=== PATIENT | male | born 1985 | race Hispanic/Latino ===

== ENCOUNTER 2021-02-09 11:23 | Emergency (ER) | payer OTHER, SELFPAY ==
[2021-02-09 11:26] VITALS: BP 120/69; PULSE 70; RESP 16; TEMP 36.3; O2SAT 98; BMI 25.8
--- NOTE | 2021-02-09 11:48 | ED.VIS.GEN ---
History of Present Illness Chief Complaint: Eye Problem Informant: Patient Narrative: 35-year-old male presents with foreign body sensation in the right eye and eye redness and drainage. He tells me that over the weekend he was working on a car and then he was mowing the lawn and he just kept feeling that something was in his eye. He states now the left eye is becoming red. No contacts or glasses. Past Medical History - Allergies and Home Meds Allergies/Adverse Reactions: Allergies No Known Allergies Allergy (Verified 02/09/21 11:26) Primary Care Physician: Bradford Godinez MD [STAFF PHYSICIAN] - (call office to arrange follow up appointment) Past Medical History: None Surgical History: noncontributory Smoking Status: Never smoker Drugs: None Review of Systems General: Denies: Chills, Fever, Sweats Eyes: Reports: - - Patient notes bilateral eye redness and drainage. Foreign body sensation of the right eye. He notes light sensitivity. Denies: Visual changes - bilaterally, Diplopia ENT: Denies: Rhinorrhea, Sore throat Cardiovascular: Denies: Chest pain, Palpitations Respiratory: Denies: Dyspnea, Cough, Dyspnea on exertion Gastrointestinal: Denies: Abdominal pain, Nausea, Vomiting, Diarrhea, Melena, Hematochezia Genitourinary: Denies: Dysuria, Hematuria, Frequency Musculoskeletal: Denies: Back pain, Extremity Pain Skin: Denies: Rash, Wounds Neurological: Denies: Headache, Weakness, Numbness Physical Exam Vital Signs/Narrative: Vital Signs Temp Pulse Resp BP Pulse Ox 02/09/21 11:26 97.3 F L 70 16 120/69 98 Inital Vital Signs reviewed: Yes General: Well nourished, Well developed, No Acute Distress Head: Normocephalic, Atraumatic Eyes: Perrl, EOMI, - - Bilateral conjunctival injection. No exudates seen. There is a corneal metallic foreign body with rust ring present. ENT: Moist mucous membranes, No rhinorrhea Neck: Supple, Nontender Cardiovascular: Regular rate, Regular rhythm, No murmurs Respiratory: No distress, CTA bilaterally, Chest nontender Abdomen: Soft, Nontender, Nondistended, Normal bowel sounds Back: Nontender, Normal Inspection Extremities: Nontender, No edema Skin: Normal color, No rash Neurological: Alert, Oriented x3, Cranial nerves II-XII grossly intact, Normal Strength, Normal Sensation Psychological: Normal affect, Normal Mood Diagnostic/Tx/Re-eval - Medical Decision Making Using tetracaine and a 22-gauge needle I was able to remove the metallic foreign body. There is a residual rust ring however. Patient was placed on erythromycin ophthalmic ointment and will follow up with ophthalmology. I will touch base with Dr. Dasilva who is on-call for them. ED Disposition - Plan for ED Patient: Disposition: Home or Assisted Living Diagnosis: Corneal foreign body, Corneal rust ring of right eye Instructions: ED Corneal Foreign Body, Removed, ED RUST RING Prescriptions: Erythromycin Ophthalmic 1 applic EACH EYE TID 7 Days #1 opth.tube Prescription Printed Referrals: Bradford Godinez MD [STAFF PHYSICIAN] - (call office to arrange follow up appointment)
[2021-02-09] MEDS: Tetracaine 0.5% Ophthalmic Bottle 1 DRP RIGHT EYE (11:52)
[2021-02-09] MEDS: Fluorescein 1 MG STRIP 1 STRIP RIGHT EYE (11:52)
[2021-02-09] MEDS: Erythromycin Base 1 OPTH.TUBE 1 APPLIC EACH EYE (12:59)
== END 2021-02-09 13:00 | disposition home or self-care (01) ==
LOC: ED 12:26
PROVIDERS: Emergency Provider Emergency Medicine
DX: T15.01XA Foreign body in cornea, right eye, initial encounter (principal); X58.XXXA Exposure to other specified factors, initial encounter; Y93.9 Activity, unspecified; Y92.9 Unspecified place or not applicable; Y99.9 Unspecified external cause status
CPT/HCPCS: 99282

== ENCOUNTER 2021-07-25 12:00 | Emergency (ER) | payer OTHER, SELFPAY ==
[2021-07-25 12:01] VITALS: BP 118/82; PULSE 57; RESP 16; TEMP 36.5; O2SAT 99; BMI 26.6
--- NOTE | 2021-07-25 13:04 | CT_ITS ---
STUDY: CT ABDOMEN AND PELVIS WITHOUT CONTRAST REASON FOR EXAM: Male, 36 years old. Left lower quadrant and left flank pain. RADIATION DOSAGE (If Supplied By Facility): CTDIvol = ( 6.91 ) mGy, DLP = ( 338.48 ) mGycm TECHNIQUE: Transaxial images were obtained from the dome of the diaphragm to the symphysis pubis without oral contrast, and without intravenous contrast. Sagittal and coronal images were reconstructed. Individualized dose optimization techniques were used for this CT. COMPARISON: None. FINDINGS: The visualized lung bases are unremarkable. The visualized portions of the heart are within normal limits. Normal liver. Normal gallbladder and extrahepatic biliary system. Normal spleen. Normal pancreas. Normal bilateral adrenal glands. Normal right kidney. Normal left kidney. Normal visualized stomach. Normal small intestine. Normal colon. The appendix is visualized and appears normal. Normal abdominal aorta. Normal inferior vena cava. Normal retroperitoneum. Normal urinary bladder. Normal abdominal wall. Normal osseous structures. CT/Abdomen/Pelvis without Cont IMPRESSION: Normal unenhanced CT of the abdomen and pelvis. Electronically Signed: Vinayak Winn MD at 14:15 EDT , Service support ,
--- NOTE | 2021-07-25 13:12 | EDS_ITS ---
HPI History of Present Illness Chief Complaint: Abd Pain Informant: patient Narrative Narrative: Patient is a 36-year-old male presenting with left lower quadrant abdominal pain. Patient states he had pain like this before but today when he woke up it was very severe. He states it radiates to his back into his left testicle/groin area. He denies associated nausea, vomiting or change in bowel habits. He denies any fever, cough or chest pain. Did not take anything for pain prior to arrival. Notes that sometimes he does get pain in his abdomen but is never anything like the severity of today. States the pain is constant but waxes and wanes in intensity. Denies any change with urination. Denies any history of any abdominal surgeries. Denies any history of kidney stones. PFSH PFSH Medical History no medical history Allergy/AdvReac Type Severity Reaction Status Date / Time No Known Allergies Allergy Verified 02/09/21 11:26 Family History no significant family his Social History Smoking Status: Never smoker ROS ROS ED Constitutional Constitutional ED: Denies chills, fever(s) or malaise Eyes Eyes: Denies blurry vision or loss of vision ENT ENT ED: Denies rhinorrhea or sore throat Cardiovascular Cardiovascular: Denies chest pain or dizziness Respiratory/Chest Respiratory/Chest: Denies cough or dyspnea Gastrointestinal Gastrointestinal: Reports abdominal pain; Denies constipation, diarrhea, nausea or vomiting Genitourinary Genitourinary ED: Denies dysuria or hematuria Musculoskeletal Musculoskeletal: Denies arthralgias or myalgias Integumentary Denies rash or wounds Neurologic Neurologic: Denies focal weakness, headache(s) or weakness Psychiatric Psychiatric: Denies anxiety or behavioral changes EXAM Physical Exam Const Vital Signs: 07/25/21 12:01 07/25/21 14:17 Temperature 97.7 F L Temperature Source Temporal Pulse Rate 57 L Respiratory Rate 16 Blood Pressure 118/82 H Blood Pressure Mean 94 Pulse Ox 99 Oxygen Delivery Method Room Air Room Air Positive well nourished, well developed and no apparent distress General Appearance ED: well developed HEENT Reports normocephalic atraumatic; Negative for trauma Nose: no nasal discharge External Ear: external ears normal Mouth ED: Yes moist mucous membranes normal Eyes PERRL and EOMs intact bilaterally Neck full ROM, supple, no meningeal signs and no JVD Chest Wall inspection of chest normal Resp normal respiratory effort, normal air movement and clear to auscultation bilaterally Cardio regular rate and regular rhythm GI normal to inspection, nondistended, normoactive bowel sounds and non-distended GI Narrative: Patient has mild pain in the left lower quadrant as well as the left CVA. No palpable hernia appreciated. Palpation: Negative for guarding or rebound tenderness present Back/Spine General Back: CVA tenderness left Extremity normal to inspection and full ROM Neuro oriented x3 and no focal motor deficits Psych mental status grossly normal and thought process normal Skin no rashes or lesions noted and no wounds MDM MDM MDM Narrative Medical decision making narrative: Patient evaluated for worsening pain in his left lower quadrant. Patient points to one discrete area as the pain but states it does sometimes rate down to his testicle and around to his back. He notes he has repetitive job for work. Differential includes hernia as well as kidney stone. He does not have any palpable hernia there is no overlying erythema or finding consistent with incarcerated/strangulated hernia. White count is normal. Lab work is largely unremarkable. Urinalysis is not consistent with infection or kidney stone. CT does not show any acute process. I suspect patient does have a small abdominal wall hernia that is causing his intermittent pain. He is given morphine, Zofran, fluids and Toradol in the ER. He has re solution of his symptoms while in the ER. He is referred to general surgery for further evaluation of suspected abdominal wall hernia. He is counseled to wear abdominal binder/back brace at work to help with his symptoms and avoid straining. Patient is counseled on signs and symptoms requiring return to the emergency room. Patient verbalizes agreement and understand this plan. Patient discharged home in stable and improved condition. Lab Data Attestation: I reviewed the patient's lab results. Labs: Laboratory Results - last 24 hr 07/25/21 07/25/21 07/25/21 13:25 13:30 13:30 WBC 5.6 RBC 5.45 Hgb 16.1 Hct 47.6 MCV 87.3 MCH 29.5 MCHC 33.8 RDW Std Deviation 42.5 RDW Coeff of [place] 13.3 Plt Count 187 MPV 12.1 H Immature Gran % (Auto) 0.400 Neut % (Auto) 58.3 Lymph % (Auto) 32.4 [place] % (Auto) 7.3 Eos % (Auto) 0.9 Baso % (Auto) 0.7 Absolute Neuts (auto) 3.3 Absolute Lymphs (auto) 1.83 Nucleated RBC % 0 Sodium 140 Potassium 3.8 Chloride 103 Carbon Dioxide 31.0 Anion Gap 6 BUN 19 H Creatinine 1.11 Estim Creat Clear Calc 78.49 Est GFR (MDRD) Af Amer 95 Est GFR (MDRD) Non-Af 79 BUN/Creatinine Ratio 17.1 Glucose 99 Calcium 8.6 Urine Color Yellow Urine Clarity Clear Urine pH 7.0 Ur Specific [place] 1.010 U Specif Grav (Refrac) Urine Protein Negative Urine Glucose (UA) Normal Urine Ketones Negative Urine Occult Blood Negative Urine Nitrite Negative Urine Bilirubin Negative Urine Urobilinogen Normal Ur Leukocyte Esterase Negative Urine RBC 0 SEEN Urine WBC 0 SEEN Ur Squamous Epith Cells 0 SEEN Ur Transition Epith Cell Ur Renal Epithelial Cell Calcium Oxalate Crystal Uric Acid Crystals Triple Phos Crystals Other Crystals Amorphous Sediment Urine Bacteria 1+ Hyaline Casts Fine Granular Casts Coarse Granular Casts Waxy Casts RBC Casts WBC Casts Urine Mucus 0 SEEN Urine Trichomonas Urine Yeast 07/25/21 13:30 WBC RBC Hgb Hct MCV MCH MCHC RDW Std Deviation RDW Coeff of [place] Plt Count MPV Immature Gran % (Auto) Neut % (Auto) Lymph % (Auto) [place] % (Auto) Eos % (Auto) Baso % (Auto) Absolute Neuts (auto) Absolute Lymphs (auto) Nucleated RBC % Sodium Potassium Chloride Carbon Dioxide Anion Gap BUN Creatinine Estim Creat Clear Calc Est GFR (MDRD) Af Amer Est GFR (MDRD) Non-Af BUN/Creatinine Ratio Glucose Calcium Urine Color Cancelled Urine Clarity Cancelled Urine pH Cancelled Ur Specific [place] Cancelled U Specif Grav (Refrac) Cancelled Urine Protein Cancelled Urine Glucose (UA) Cancelled Urine Ketones Cancelled Urine Occult Blood Cancelled Urine Nitrite Cancelled Urine Bilirubin Cancelled Urine Urobilinogen Cancelled Ur Leukocyte Esterase Cancelled Urine RBC Cancelled Urine WBC Cancelled Ur Squamous Epith Cells Cancelled Ur Transition Epith Cell Cancelled Ur Renal Epithelial Cell Cancelled Calcium Oxalate Crystal Cancelled Uric Acid Crystals Cancelled Triple Phos Crystals Cancelled Other Crystals Cancelled Amorphous Sediment Cancelled Urine Bacteria Cancelled Hyaline Casts Cancelled Fine Granular Casts Cancelled Coarse Granular Casts Cancelled Waxy Casts Cancelled RBC Casts Cancelled WBC Casts Cancelled Urine Mucus Cancelled Urine Trichomonas Cancelled Urine Yeast Cancelled Radiography Diagnostic Testing: Radiology Impression Abdomen/Pelvis CT 07/25/21 13:04 IMPRESSION: Normal unenhanced CT of the abdomen and pelvis. Electronically Signed: Vinayak Winn MD at 14:15 EDT , Service support , Discharge Plan Triage Chief Complaint: Abd Pain ED Provider: Shanice Taylor Dx/Rx/DC Orders Clinical Impression: Abdominal wall pain, Abdominal wall hernia Instructions: ED Hernia (Adult), ED Abdominal Pain Unkn Cause Male... Primary Care Provider: Care Physician,No Primary Referrals: Dilshad Morales MD [STAFF PHYSICIAN] - Care Physician,No Primary [Primary Care Provider] - Activity Restrictions/Additional Instructions: Alternate Tylenol and ibuprofen as needed for pain. Disposition Disposition: Home, Self Care Discharge Date/Time: 07/25/21 15:30
[2021-07-25] MEDS: Ondansetron 4 MG/2 ML Vial IV (13:41)
[2021-07-25] MEDS: Morphine 4 MG/ML Syringe IV (13:41)
[2021-07-25] MEDS: 0.9% Normal Saline 1,000 ML 999 ML IV (13:41)
[2021-07-25] MEDS: Ketorolac 15 MG/ML Vial IV (13:41)
[2021-07-25 13:43] LABS: Absolute Lymphocyte Count 1.83 X10^3/uL (0.83-4.51); Absolute Neutrophil Count 3.3 X10^3/uL (2.0-7.7); Basophil# 0.04 X10^3/uL; Basophil% 0.7 % (0-1); Eosinophil# 0.05 X10^3/uL; Eosinophils% 0.9 % (0-5); Hematocrit 47.6 % (40-54); Hemoglobin 16.1 g/dL (13.0-16.5); Lymphocyte # 1.83 X10^3/ul (0.83-4.51); Lymphocyte % 32.4 % (19-41); Mean Corp Hgb Conc 33.8 g/dL (32-36); Mean Corpuscular Hgb 29.5 pg (27.0-32.0); Mean Corpuscular Volume 87.3 fL (80-94); Mean Platelet Vol. 12.1 fl (6.2-12.0); Monocyte# 0.41 X10^3/uL; Monocyte% 7.3 % (0-10); NRBC Flagged by Analyzer 0 % (0-5); Neutrophil # 3.29 X10^3/uL (2.7-7.7); Neutrophil % 58.3 % (47-70); Platelet Count 187 K/mm3 (150-450); RBC Distribution Width CV 13.3 % (11.6-14.6); RBC Distribution Width SD 42.5 fl (35.1-43.9); Red Blood Count 5.45 M/mm3 (4.6-6.2); White Blood Count 5.6 K/mm3 (4.4-11.0)
[2021-07-25 13:57] LABS: Anion Gap 6 (5-15); BUN 19 mg/dL (7-18); BUN/Creat Ratio 17.1 RATIO (10-20); Calcium,Total 8.6 mg/dL (8.5-10.1); Chloride 103 mmol/L (98-107); Creatinine, Serum 1.11 mg/dL (0.70-1.30); EST Glomerular Filtration Rate 79 mL/min (>60); Est Glom Filt Rate - Afr Amer 95 mL/min (>60); Estimated Creatinine Clearance 78.49 ml/min; Glucose 99 mg/dL (74-106); Potassium 3.8 mmol/L (3.5-5.1); Sodium Level 140 mmol/L (136-145)
[2021-07-25 14:05] LABS: Mucous, Urine 0 SEEN /hpf (<or=2+); Red Blood Cells-Urine 0 SEEN /hpf (0-5); Squamous Epithelial Cells - UA 0 SEEN /hpf (0-5); White Blood Cells 0 SEEN /hpf (0-5)
[2021-07-25 14:07] LABS: Color, Urine Yellow (Yellow); Glucose, Dipstick Normal (Normal); Ketone-Dipstick Negative (Negative); Leukocyte Esterase-Dipstick Negative /ul (Negative); Nitrite-Dipstick Negative (Negative); Occult Blood-Urine Negative /ul (Negative); Protein-Dipstick Negative (Negative); Urine Bilirubin Dipstick Negative (Negative); Urine Clarity Clear (Clear); Urine Urobilinogen Normal (Normal)
[2021-07-25 14:14] LABS: Bacteria 1+ /hpf (None Seen)
[2021-07-25 15:27] VITALS: BP 114/79; PULSE 86; RESP 18; O2SAT 99
--- NOTE | 2021-07-25 15:27 | ED.RN ---
THIS NURSE REVIEWED D/C INSTRUCTIONS WITH PT. PT VERBALIZED UNDERSTANDING OF INSTRUCTIONS. PT DOES SPEAK SOME [place]. WRITTEN D/C INSTRUCTIONS GIVEN IN [place]. PT READ ALL THE INSTRUCTIONS AND DENIES FURTHER NEEDS OR QUESTIONS AT THIS TIME. IV D/C. IV CATHETER INTACT. PT TOLERATED WELL. PT DENIES FURTHER NEEDS OR QUESTIONS AT [facility]
== END 2021-07-25 15:30 | disposition home or self-care (01) ==
PROVIDERS: Emergency Provider Emergency Medicine
DX: K43.9 Ventral hernia without obstruction or gangrene (principal); R10.32 Left lower quadrant pain
CPT/HCPCS: 74176; 80048; 81001; 85025; 96361; 96374; 96375; 99283; J7030; A4216; J2405

== ENCOUNTER 2023-12-02 19:31 | Emergency (ER) | payer OTHER, SELFPAY ==
[2023-12-02 19:32] VITALS: BP 112/71; PULSE 92; RESP 18; TEMP 37.8; O2SAT 99; BMI 26.5
[2023-12-02 19:45] VITALS: BP 114/67; PULSE 84; TEMP 39.1
--- NOTE | 2023-12-02 19:58 | CT_ITS ---
STUDY: CT ABDOMEN AND PELVIS WITHOUT CONTRAST REASON FOR EXAM: Male, 38 years old. Kidney Stone RADIATION DOSAGE (If Supplied By Facility): CTDIvol = ( 6.31 ) mGy, DLP = ( 345.28 ) mGycm TECHNIQUE: Transaxial images were obtained from the dome of the diaphragm to the symphysis pubis without oral contrast, and without intravenous contrast. Sagittal and coronal images were reconstructed. Individualized dose optimization techniques were used for this CT. COMPARISON: 07/25/2021 FINDINGS: The visualized lung bases are unremarkable. The visualized portions of the heart are within normal limits. Normal liver. Normal gallbladder and extrahepatic biliary system. Normal spleen. Normal pancreas. Normal bilateral adrenal glands. Normal right kidney. Normal left kidney. Normal visualized stomach. Normal small intestine. Normal colon. The appendix is visualized and appears normal. Normal abdominal aorta. Normal inferior vena cava. Normal retroperitoneum. Normal urinary bladder. There is a small umbilical hernia containing fat. Normal osseous structures. CT/Abdomen/Pelvis without Cont IMPRESSION: Normal unenhanced CT of the abdomen and pelvis. Electronically Signed: Benny Woodard MD at 21:45 EST ,
[2023-12-02] MEDS: 0.9% Normal Saline (1000mL) 1,000 ML 999 ML IV (20:08)
[2023-12-02] MEDS: Ondansetron 4 MG/2 ML Vial IV (20:08)
[2023-12-02] MEDS: Ketorolac 30 MG/ML Syringe IV (20:08)
[2023-12-02 20:10] LABS: Absolute Lymphocyte Count 1.04 X10^3/uL (0.83-4.51); Absolute Neutrophil Count 11.6 X10^3/uL (2.0-7.7); Basophil# 0.03 X10^3/uL; Basophil% 0.2 % (0-1); Eosinophil# 0.04 X10^3/uL; Eosinophils% 0.3 % (0-5); Hematocrit 42.2 % (40-54); Hemoglobin 14.6 g/dL (13.0-16.5); Lymphocyte # 1.04 X10^3/ul (0.83-4.51); Lymphocyte % 7.7 % (19-41); Mean Corp Hgb Conc 34.6 g/dL (32-36); Mean Corpuscular Hgb 29.5 pg (27.0-32.0); Mean Corpuscular Volume 85.3 fL (80-94); Mean Platelet Vol. 12.1 fl (6.2-12.0); Monocyte# 0.72 X10^3/uL; Monocyte% 5.3 % (0-10); NRBC Flagged by Analyzer 0 % (0-5); Neutrophil # 11.61 X10^3/uL (2.7-7.7); Neutrophil % 86.3 % (47-70); Platelet Count 140 K/mm3 (150-450); RBC Distribution Width CV 12.9 % (11.6-14.6); RBC Distribution Width SD 39.8 fl (35.1-43.9); Red Blood Count 4.95 M/mm3 (4.6-6.2); White Blood Count 13.5 K/mm3 (4.4-11.0)
--- NOTE | 2023-12-02 20:12 | EX.ED.DYSGE1 ---
HPI History of Present Illness Chief Complaint: General Illness PFSH PFSH Medical History no medical history Allergy/AdvReac Type Severity Reaction Status Date / Time No Known Allergies Allergy Verified 12/02/23 19:34 Family History no significant family his Social History Smoking Status: Never smoker EXAM Physical Exam Const Vital Signs: 12/02/23 19:32 12/02/23 19:43 12/02/23 19:45 Temperature 100.0 F H 102.4 F H Temperature Source Temporal Oral Pulse Rate 92 84 Respiratory Rate 18 Respiratory Pattern Normal Blood Pressure 112/71 114/67 Blood Pressure Mean 84 82 Pulse Ox 99 Oxygen Delivery Method Room Air MDM MDM Lab Data Labs: Laboratory Results - last 24 hr 12/02/23 19:45 WBC 13.5 H RBC 4.95 Hgb 14.6 Hct 42.2 MCV 85.3 MCH 29.5 MCHC 34.6 RDW Std Deviation 39.8 RDW Coeff of [place] 12.9 Plt Count 140 L MPV 12.1 H Immature Gran % (Auto) 0.200 Neut % (Auto) 86.3 H Lymph % (Auto) 7.7 L [place] % (Auto) 5.3 Eos % (Auto) 0.3 Baso % (Auto) 0.2 Absolute Neuts (auto) 11.6 H Absolute Lymphs (auto) 1.04 Nucleated RBC % 0 Discharge Plan Triage Chief Complaint: General Illness ED Midlevel Provider: Cheri Menjivar ED Provider: Rubio Groves Dx/Rx/DC Orders Primary Care Provider: Care Physician,No Primary Referrals: Care Physician,No Primary [Primary Care Provider] -
--- NOTE | 2023-12-02 20:14 | EX.ED.DYSGE1 ---
HPI <HARRY Hernandez - Last Filed: 12/02/23 22:22> History of Present Illness Chief Complaint: General Illness Narrative Narrative: Patient presenting today due low R and L back pain that is worse on his left side that radiates to his left mid abdomen that he has had since this afternoon. He reports that he has also had nausea, 1 episode of vomiting, fever, and chills. He reports that he does have a history of chronic low back pain over the past several years, but this is more painful. He denies any history of IV drug use, bowel/bladder incontinence, and saddle paresthesia. He denies any history of abdominal surgeries. He reports normal bowel movements and denies any urinary symptoms. <Dr. Rubio Groves DO - Last Filed: 12/02/23 23:22> Narrative Narrative: Patient presenting today due low R and L back pain that is worse on his left side that radiates to his left mid abdomen that he has had since this afternoon. He reports that he has also had nausea, 1 episode of vomiting, fever, and chills. He reports that he does have a history of chronic low back pain over the past several years, but this is more painful. Patient denies any saddle anesthesia, urinary retention, bowel or bladder incontinence, lower extremity weakness, fever or IV drug use, no recent spinal manipulation or surgery, no recent urinary catheterization. He denies any history of abdominal surgeries. He reports normal bowel movements and denies any urinary symptoms. PFSH <HARRY Hernandez - Last Filed: 12/02/23 22:22> [facility] Home Medications naproxen 500 mg tablet 500 mg PO BID #14 tabs 12/02/23 [Rx Last Taken Unknown] ondansetron 4 mg disintegrating tablet 4 mg PO Q8H PRN PRN Nausea #10 tabs 12/02/23 [Rx Last Taken Unknown] Allergy/AdvReac Type Severity Reaction Status Date / Time No Known Allergies Allergy Verified 12/02/23 19:34 Social History Smoking Status: Never smoker ROS <HARRY Hernandez - Last Filed: 12/02/23 22:22> ROS ED Constitutional Constitutional ED: Denies chills or fever(s) Cardiovascular Cardiovascular: Denies chest pain Respiratory/Chest Respiratory/Chest: Denies cough or dyspnea Gastrointestinal Gastrointestinal: Denies abdominal pain, nausea or vomiting Genitourinary Genitourinary ED: Denies dysuria, hematuria or urinary urgency Musculoskeletal Musculoskeletal: Reports back pain; Denies arthralgias or myalgias Integumentary Denies rash Neurologic Neurologic: Denies paresthesias or weakness EXAM <HARRY Hernandez - Last Filed: 12/02/23 22:22> Physical Exam Const Vital Signs: 12/02/23 19:32 12/02/23 19:43 12/02/23 19:45 Temperature 100.0 F H 102.4 F H Temperature Source Temporal Oral Pulse Rate 92 84 Respiratory Rate 18 Respiratory Pattern Normal Blood Pressure 112/71 114/67 Blood Pressure Mean 84 82 Pulse Ox 99 Oxygen Delivery Method Room Air 12/02/23 22:24 Temperature Temperature Source Pulse Rate 72 Respiratory Rate 14 Respiratory Pattern Blood Pressure 102/54 L Blood Pressure Mean 70 Pulse Ox 99 Oxygen Delivery Method Room Air Positive well nourished, well developed and no apparent distress General Appearance ED: well developed HEENT Reports normocephalic and head/scalp atraumatic Mouth ED: Yes moist mucous membranes normal Eyes PERRL and EOMs intact bilaterally Neck full ROM and supple Chest Wall inspection of chest normal Resp normal respiratory effort and clear to auscultation bilaterally Cardio regular rate and regular rhythm GI soft to palpation, non-tender, non-distended and no masses Back/Spine normal ROM and normal to inspection Back/Spine Narrative: Left and right lumbar paraspinal tenderness, no midline spinal tenderness to the thoracic or lumbar spine. General Back: Negative for CVA tenderness Thoracic Spine / Upper Back: Negative for thoracic spinal tenderness Lumbar Spine / Lower Back: Negative for lumbar spinal tenderness Extremity normal to inspection and full ROM Neuro oriented x3, CN's II-XII intact bilaterally, moves all extremities, no focal motor deficits and no sensory deficits noted Neuro Narrative: Sensation intact in bilateral lower extremities, intact patellar and ankle reflexes. Sensorium / Orientation: awake and alert Motor Exam: strength 5/5 throughout Psych mental status grossly normal and thought process normal Skin no rashes or lesions noted and no wounds <Dr. Rubio Groves DO - Last Filed: 12/02/23 23:22> Physical Exam Const Vital Signs: 12/02/23 19:32 12/02/23 19:43 12/02/23 19:45 Temperature 100.0 F H 102.4 F H Temperature Source Temporal Oral Pulse Rate 92 84 Respiratory Rate 18 Respiratory Pattern Normal Blood Pressure 112/71 114/67 Blood Pressure Mean 84 82 Pulse Ox 99 Oxygen Delivery Method Room Air 12/02/23 22:24 Temperature Temperature Source Pulse Rate 72 Respiratory Rate 14 Respiratory Pattern Blood Pressure 102/54 L Blood Pressure Mean 70 Pulse Ox 99 Oxygen Delivery Method Room Air [facility] <HARRY Hernandez - Last Filed: 12/02/23 22:22> [facility] Narrative Medical decision making narrative: Patient presenting due to left and R sided low back pain that is worse on the left side and radiates to his left side and left side of his abdomen, nausea, fevers, and chills that started this afternoon. No midline back tenderness. He reports a chronic history of mid back pain. Examination does not seem consistent with cauda equina syndrome or spinal abscess. CT of the abdomen and pelvis will be obtained to rule out kidney stone and other abdominal etiology. UA obtained to rule out UTI and is negative. CBC does show slight leukocytosis, lactic acid is WNL. UA is negative. He was given IV fluids, Toradol, and Zofran. COVID, flu, and influenza swabs will be obtained. CT negative for any acute findings. On reexamination patient reports improvement of his symptoms. The fever and symptoms likely due to a viral illness. Given a prescription for naproxen and Zofran and will be discharged with stable condition. He is comfortable with plan. Lab Data Attestation: I reviewed the patient's lab results. Lab results narrative: WBC 13.5, platelet count 140, potassium 3.4, BUN 19, UA negative for UTI Labs: Laboratory Results - last 24 hr 12/02/23 12/02/23 12/02/23 19:39 19:45 20:25 WBC 13.5 H RBC 4.95 Hgb 14.6 Hct 42.2 MCV 85.3 MCH 29.5 MCHC 34.6 RDW Std Deviation 39.8 RDW Coeff of Hunter 12.9 Plt Count 140 L MPV 12.1 H Immature Gran % (Auto) 0.200 Neut % (Auto) 86.3 H Lymph % (Auto) 7.7 L Towner % (Auto) 5.3 Eos % (Auto) 0.3 Baso % (Auto) 0.2 Absolute Neuts (auto) 11.6 H Absolute Lymphs (auto) 1.04 Nucleated RBC % 0 Sodium 137 Potassium 3.4 L Chloride 107 Carbon Dioxide 24.0 Anion Gap 6 BUN 19 H Creatinine 0.89 Estim Creat Clear Calc 99.56 Est GFR (MDRD) Af Amer 122 Est GFR (MDRD) Non-Af 100 BUN/Creatinine Ratio 21.3 H Glucose 119 H Lactic Acid 1.5 Calcium 8.9 Urine Color Yellow Urine Clarity Clear Urine pH 5.0 Ur Specific Morning Sun 1.020 Urine Protein Negative Urine Glucose (UA) Normal Urine Ketones Negative Urine Occult Blood Negative Urine Nitrite Negative Urine Bilirubin Negative Urine Urobilinogen Normal Ur Leukocyte Esterase Negative Urine RBC 0 SEEN Urine WBC 0 SEEN Ur Squamous Epith Cells 0 SEEN Urine Bacteria 0 SEEN Urine Mucus 0 SEEN Radiography Diagnostic Testing: Clinical Impression(s) from Imaging Studies Abdomen/Pelvis CT 12/02/23 19:58 IMPRESSION: Normal unenhanced CT of the abdomen and pelvis. Electronically Signed: Benny Woodard MD at 21:45 EST , <Dr. Rubio Groves, DO - Last Filed: 12/02/23 23:22> [facility] Narrative Medical decision making narrative: Patient presenting due to left and R sided low back pain that is worse on the left side and radiates to his left side and left side of his abdomen, nausea, fevers, and chills that started this afternoon. No midline back tenderness. He reports a chronic history of mid back pain. Examination does not seem consistent with cauda equina syndrome or spinal abscess. CT of the abdomen and pelvis will be obtained to rule out kidney stone and other abdominal etiology. UA obtained to rule out UTI and is negative. CBC does show slight leukocytosis, lactic acid is WNL. UA is negative. He was given IV fluids, Toradol, and Zofran. COVID, flu, and influenza swabs will be obtained. CT negative for any acute findings. On reexamination patient reports improvement of his symptoms. The fever and symptoms likely due to a viral illness. Given a prescription for naproxen and Zofran and will be discharged with stable condition. He is comfortable with plan. ED attending note: I evaluated the patient in conjunction with the [facility]. I agree with his/her statements and above findings. I have personally performed a face to face assessment of the patient and have reviewed the [facility] Note. I performed a substantive portion of the visit including all aspects of the following. I personally saw the patient performed chart review, physical exam, reviewed labs, imaging (if obtained), and formulated a treatment and management plan. This note was generated with [employer] dictation software. It may contain incorrect words, spelling, and punctuation that were not noted in review of the chart prior to signing. Lab Data Labs: Laboratory Results - last 24 hr 12/02/23 12/02/23 12/02/23 19:39 19:45 20:25 WBC 13.5 H RBC 4.95 Hgb 14.6 Hct 42.2 MCV 85.3 MCH 29.5 MCHC 34.6 RDW Std Deviation 39.8 RDW Coeff of Hunter 12.9 Plt Count 140 L MPV 12.1 H Immature Gran % (Auto) 0.200 Neut % (Auto) 86.3 H Lymph % (Auto) 7.7 L Towner % (Auto) 5.3 Eos % (Auto) 0.3 Baso % (Auto) 0.2 Absolute Neuts (auto) 11.6 H Absolute Lymphs (auto) 1.04 Nucleated RBC % 0 Sodium 137 Potassium 3.4 L Chloride 107 Carbon Dioxide 24.0 Anion Gap 6 BUN 19 H Creatinine 0.89 Estim Creat Clear Calc 99.56 Est GFR (MDRD) Af Amer 122 Est GFR (MDRD) Non-Af 100 BUN/Creatinine Ratio 21.3 H Glucose 119 H Lactic Acid 1.5 Calcium 8.9 Urine Color Yellow Urine Clarity Clear Urine pH 5.0 Ur Specific Morning Sun 1.020 Urine Protein Negative Urine Glucose (UA) Normal Urine Ketones Negative Urine Occult Blood Negative Urine Nitrite Negative Urine Bilirubin Negative Urine Urobilinogen Normal Ur Leukocyte Esterase Negative Urine RBC 0 SEEN Urine WBC 0 SEEN Ur Squamous Epith Cells 0 SEEN Urine Bacteria 0 SEEN Urine Mucus 0 SEEN Radiography Diagnostic Testing: Clinical Impression(s) from Imaging Studies Abdomen/Pelvis CT 12/02/23 19:58 IMPRESSION: Normal unenhanced CT of the abdomen and pelvis. Electronically Signed: Benny Woodard MD at 21:45 EST , Discharge Plan Triage Chief Complaint: General Illness ED Midlevel Provider: Cheri Menjivar ED Provider: Rubio Groves Dx/Rx/DC Orders Clinical Impression: Back pain, Viral illness Instructions: ED Viral Syndrome (Adult) Prescriptions: New naproxen 500 mg tablet 500 mg PO BID Qty: 14 0RF ondansetron 4 mg tablet,disintegrating 4 mg PO Q8H PRN PRN (Reason: Nausea) Qty: 10 0RF Primary Care Provider: Care Physician,No Primary Referrals: Kendrick Méndez MD [Med Staff - Machine Sprayer] - As Needed Care Physician,No Primary [Primary Care Provider] - Activity Restrictions/Additional Instructions: Follow-up with PCP. Return for any worsening of your symptoms. Disposition Disposition: Home, Self Care Discharge Date/Time: 12/02/23 22:25
[2023-12-02 20:22] LABS: Anion Gap 6 (5-15); BUN 19 mg/dL (7-18); BUN/Creat Ratio 21.3 RATIO (10-20); Calcium,Total 8.9 mg/dL (8.5-10.1); Chloride 107 mmol/L (98-107); Creatinine, Serum 0.89 mg/dL (0.70-1.30); EST Glomerular Filtration Rate 100 mL/min (>60); Est Glom Filt Rate - Afr Amer 122 mL/min (>60); Estimated Creatinine Clearance 99.56 ml/min; Glucose 119 mg/dL (74-106); Potassium 3.4 mmol/L (3.5-5.1); Sodium Level 137 mmol/L (136-145)
[2023-12-02 20:22] LABS: Bacteria 0 SEEN /hpf (None Seen); Mucous, Urine 0 SEEN /hpf (<or=2+); Red Blood Cells-Urine 0 SEEN /hpf (0-5); Squamous Epithelial Cells - UA 0 SEEN /hpf (0-5); White Blood Cells 0 SEEN /hpf (0-5)
[2023-12-02 20:25] LABS: Color, Urine Yellow (Yellow); Glucose, Dipstick Normal (Normal); Ketone-Dipstick Negative (Negative); Leukocyte Esterase-Dipstick Negative /ul (Negative); Nitrite-Dipstick Negative (Negative); Occult Blood-Urine Negative /ul (Negative); Protein-Dipstick Negative (Negative); Urine Bilirubin Dipstick Negative (Negative); Urine Clarity Clear (Clear); Urine Urobilinogen Normal (Normal)
--- OUTSIDE RECORDS SUMMARY | 2023-12-02 20:52 | XMS RPT_ITS | CCD ---
Author Name Unknown Address [address] [place] [address] Organization [facility] Care Team Providers Care Chief Engineer [employer]illing And Recovery Name Role Phone Pardo Fareed Eliel Unavailable Unavailable Unavailable Primary Care Provider Unavailabl e Medications Completed/Discontinued Medications Medication Drug Class(es) Dates Sig (Normalized) Sig (Original) acetaminophen 500 mg oral capsule (3 sources) Acetaminophen 50 0 mg cap Take 1,000 mg by mouth as needed. 0 Active Problems Active Problems Problem Classification Problem Date Documented Date Episodic/Chronic Joint disorders and dislocations; trauma-related (3 sources) Chondromalacia of right patella; Translations: [Chondromalacia patellae, right knee] Onset: 08-05-2021 08-05-2021 Chronic Joint disorders and dislocations; trauma-related (1 source) Tear of medial meniscus of knee; Translations: [Other tear of medial meniscus, current injury, left knee, initial encounter] Episodic Other non-traumatic joint disorders (2 sources) Pain in left knee; Translations: [Pain in joint, lower leg] Episodic Unclassified (1 source) Unknown / UNK(Unknown) Onset: 01-21-2018 Past or Other Problems Problem Classification Problem Date Documented Da te Episodic/Chronic Sprains and strains (6 sources) Rupture of anterior cruciate ligament of left knee; Translations: [Sprain of anterior cruciate ligament of left knee, initial encounter] Onset: 10-14-2018 10-23-2018 Episodic Unclassified (1 source) POSS HERNIA Onset: 01-21-2018 Results Test Name Value Interpretation Reference Range Facil ity Encounters Encounter Date Encounter Type Care Provider Facility Start: 05-11-2022 End: 05-11-2022 Subsequent hospital visit by physician Mri [facility] (I-Stat/1.5t) Work Phone: Radiology Procedures Date Procedure Procedure Detail Performing Clinician Start: 05-11-2022 Mri any jt lower ext rem w/o contrast matrl Mayur Ellis MD Work Phone: Start: 04-24-2022 Radiologic examinati on knee 1/2 views Mayur Ellis MD Work Phone: Start: 08-05-2021 History of operative procedure on knee S/P ACL reconstruction [employer] Work Phone: Plan of Treatment Date Care Activity Detail Author Start: 06-29-2022 Influenza vaccination C [facility] Start: 2018 LIPID SCREEN LIPID SCREEN [facility] Start: 2002 Urine microalbumin profile DTAP,TDAP ,TD (1 - Tdap) [facility] Start: 2001 HEPATITIS C SCREENING HEPATITIS C SC REENING [facility] Start: 2001 HIV SCREENING [facility] Start[facility]EN[facility] Start: 1988 COVID-19 VACCINE (#1) COVID-19 VACCI NE (#1) [facility] Start: 1983 COVID-19 VACCINE (#1) COVID-19 VACCI NE (#1) [facility] Payers Date Payer Category Payer Unknown [employer] [place] PRE RON SELF FUNDED [id number] 2021-Present [phone] [address] [place] [address] PPO [id number] Self-pay Social History Date Type Detail Facility Start: 09-16-2018 Tobacco smoking stat us NHIS Never smoked tobacco [facility] Work Phone: Start: 09-16-2018 Tobacco use and exposure Smokeless tobacco non-user [facility] Work Phone: Start: 04-24-2022 End: 05-15-2022 Alcohol intake Current drinker of alcohol (finding) [facility] Start: 09-16-2018 History SDOH Alcohol Comment 1 beer twice per month [facility] Start: 1983 Sex Assigned At Not on file C [facility] Start: 04-14-2022 End: 04-24-2022 Exposure to SARS-CoV-2 (event) Not sure [facility] Work Phone: Medical Equipment Procedure Code Equipment Code Equipment Origin al Text Equipment Identifier Dates Device Tightrope Fixation 2 Load Pass Suture Acl Right - [id number] Start: 10-23-2018 Device Tightrope Fixation 2 Load Pass Suture Acl Right - [id number] Start: 07-09-2019 Clinical Notes 06-17-2021 to 05-11-2022 RT Deisy(R) - 05/11/2022 3:00 PM EDTNORA Dobbins) - 04/24/2022 2:20 PM EDWalt Ellis MD - 04/24/2022 2:00 PM EDT Note Date & Type Note Facility 05-11-2022 Note HNO ID: [id number] Author: RT Deisy(Arielle) Service: ? Author Type: Technologist Type: Progress Notes Filed: 05/11/2022 3:09 PM Note Text: Radiology Service Progress Note PATIENT NAME: Nicola Stovall DATE OF SERVICE: May 11, 2022 TIME: 3:09 PM PATIENT IDENTITY VERIFICATION COMPLETED USING TWO (2) IDENTIFIERS: Name and Date of confirmed by patient verbally. FALL SCREENING: Has the patient had 2 falls in the last year or 1 fall with injury or currently using an Ambulatory Assistive Device (Walker, Cane, Wheelchair, Crutches, etc.)? No PATIENT GENDER DATA: Male PATIENT RELEVANT IMPLANT DATA REVIEWED: Yes RADIOLOGY DEPARTMENT: MR; Exam(s) Completed: Lower MSK: Knee, left PERIPHERAL IV DATA: Not applicable SIGNED BY: RT Deisy(R) May 11, 2022 3:09 PM [facility] 05-11-2022 History of Present illness Narrative Radiology Service Progress Note PATIENT NAME: Nicola Stovall DATE OF SERVICE: May 11, 2022 TIME: 3:09 PM PATIENT IDENTITY VERIFICATION COMPLETED USING TWO (2) IDENTIFIERS: Name and Date of confirmed by patient verbally. FALL SCREENING: Has the patient had 2 falls in the last year or 1 fall with injury or currently using an Ambulatory Assistive Device (Walker, Cane, Wheelchair, Crutches, etc.)? No PATIENT GENDER DATA: Male PATIENT RELEVANT IMPLANT DATA REVIEWED: Yes RADIOLOGY DEPARTMENT: MR; Exam(s) Completed: Lower MSK: Knee, left PERIPHERAL IV DATA: Not applicable SIGNED BY: RT Deisy(Arielle) May 11, 2022 3:09 PM documented in this encounter [facility] 04-24-2022 Note HNO ID: [id number] Author: NORA Dobbins) Service: Radiology Author Type: Technologist Type: Progress Notes Filed: 04/24/2022 2:43 PM Note Text: Radiology Service Progress Note PATIENT NAME: Nicola Stovall DATE OF SERVICE: April 24, 2022 TIME: 2:35 PM PATIENT IDENTITY VERIFICATION COMPLETED USING TWO (2) IDENTIFIERS: Name and Date of confirmed by patient verbally. Patient declined advertising account representative services for his x-ray appointment today. FALL SCREENING: Has the patient had 2 falls in the last year or 1 fall with injury or currently using an Ambulatory Assistive Device (Walker, Cane, Wheelchair, Crutches, etc.)? No PATIENT GENDER DATA: Male PATIENT RELEVANT IMPLANT DATA REVIEWED: Yes RADIOLOGY DEPARTMENT: General X-ray: Exam(s) Completed: Lower Extremity X-Ray(s): Knee, AP / LAT Left and Wt. Bearing PERIPHERAL IV DATA: Not applicable SIGNED BY: RT Mu(R) April 24, 2022 2:35 PM [facility] 04-24-2022 Note HNO ID: [id number] Author: Mayur Ellis MD Service: ? Author Type: Physician Type: Progress Notes Filed: 05/15/2022 7:41 AM Note Text: Mayur Ellis MD Department of Orthopaedics Orthopaedics [address] [facility] [address] Dept: [phone] Dept April 24, 2022 CHIEF COMPLAINT: Established Patient of the Left Knee and 3 weeks post injury left knee 10 months post visit s/p ACL reconstruction right knee, referred to Dr. Muniz for 2nd opinion HPI AMB ROOMING INTAKE FLOWSHEET DATA Risk Screening Do you have concerns about personal safety or safety in the home?: No Pain Pain Level: 5 Pain Location: Knee-Left Description: Sharp Duration Amount of Time: 3 Duration Units: Weeks Frequency: Continuous Intervention/Comfort measure: Medication Comments: tylenol Pt. presents with new injury of left knee which occurred 3 weeks ago when he planted left leg and pivoted and heard pop with sharp pain. he states it feels unstable. He denies ecchymosis at time of injury. He has had past ACL repair of this knee. He has been taking tylenol 100 mg 2-3 times per week when pain is bad with complete relief. ASSESSMENT: M25.562 Acute pain of left knee (primary encounter diagnosis) S83.242A Tear of medial meniscus of left knee, current, unspecified tear type, initial encounter PLAN: He is slightly lax but symmetrical to the contralateral side and still with a solid endpoint. I like to get an MRI based on his feelings of instability and a pop that he felt. Mr. Nicola Stovall was advised as to contrast therapies and/or to take analgesics/anti-inflammatories as needed and all contraindications were reviewed. OBJECTIVE: Mr. Nicola Stovall is a pleasant 36 year old in no apparent distress. Gen:There were no vitals taken for this visit. nl development, non obese, no deformities ENT: Normocephalic, normal hearing, moist mucosa CV: Pulses:DP/PT= 2+ and symmetric, capillary refill < 2 secs, no peripheral edema/varicosities Skin: no rash, bruising or lesions. Good turgor. Psych: cooperative and appropriate, alert and oriented x 3, good mood and affect. Musculoskeletal: 2+ Santiago, symmetrical to the contralateral side with a stable endpoint. Mild pain but no mechanical symptoms with Melo. Imaging: IMPRESSION: No radiographic evidence of acute osseous abnormality. Status post anterior cruciate ligament repair with stable mild medial compartmental joint space narrowing. Floorwalker: LISA ? Transcribe Date/Time: Apr 24 2022 ?3:26P Dictated by : MEHDI FERGUSON MD This examination was interpreted and the report reviewed and electronically signed by: MEHDI FERGUSON MD on Apr 24 2022 ?3:27PM ?EST Results-Findings * * *Final Report* * * DATE OF EXAM: Apr 24 2022 ?2:42PM ? WRX ? 5206 ?- ?XR KNEE 2V AP/LAT LT ?/ PROCEDURE REASON: Acute pain of left knee ?? ? * * * * Physician Interpretation * * * * ?CLINICAL INDICATION: Pain TECHNIQUE: AP and lateral radiographs of the left knee COMPARISON: Radiograph dated April 28, 2021 FINDINGS: Left knee: Trace fluid in the left suprapatellar joint space. Stable postsurgical changes from anterior cruciate ligament repair. No acute fracture or dislocation. Stable mild medial compartmental joint space narrowing. Comparison radiograph of the right knee demonstrates stable postsurgical changes from anterior cruciate ligament repair and stable mild medial compartmental joint space narrowing. Supporting Subjective Information Below: Past Surgical History: PAST SURGICAL HISTORY Procedure Laterality Date - KNEE SCOPE,AID ANT CRUCIATE REPAIR Left 10/23/2018 Left knee arthroscopic ACL reconstruction with auto hamstring graft and left knee medial menisectomy - KNEE SCOPE,AID ANT CRUCIATE REPAIR Right 07/09/2019 Righ knee arthroscopic ACL reconstruction with auto hamstring graft and right knee medial menisectomy, AND medial distal femoral condyle microfracture - NONE Medications: Current Outpatient Medications Medication Sig - meloxicam (MOBIC) 15 mg tablet Take 1 tablet by mouth once daily. (Patient not taking: Reported on 07/28/2021 ) - Acetaminophen 500 mg cap Take 1,000 mg by mouth as needed. (Patient not taking: Reported on 08/23/2021 ) No current facility-administered medications for this visit. Allergies: Patient has no known allergies. ROS: General (negative for fatigue, malaise, weight loss/gain) HEENT (negative for headache, earache, recent vision changes, sinus pain, sore throat) Respiratory (no recent shortness of breath, hemoptysis) CV (negative for chest tightness, palpitations) Musculoskeletal (see HPI) Psych (no depression, anxiety) Mayur Ellis MD [facility] 04-24-2022 History of Present illness Narrative Radiology Service Progress Note PATIENT NAME: Nicola Stovall DATE OF SERVICE: April 24, 2022 TIME: 2:35 PM PATIENT IDENTITY VERIFICATION COMPLETED USING TWO (2) IDENTIFIERS: Name and Date of confirmed by patient verbally. Patient declined advertising account representative services for his x-ray appointment today. FALL SCREENING: Has the patient had 2 falls in the last year or 1 fall with injury or currently using an Ambulatory Assistive Device (Walker, Cane, Wheelchair, Crutches, etc.)? No PATIENT GENDER DATA: Male PATIENT RELEVANT IMPLANT DATA REVIEWED: Yes RADIOLOGY DEPARTMENT: General X-ray: Exam(s) Completed: Lower Extremity X-Ray(s): Knee, AP / LAT Left and Wt. Bearing PERIPHERAL IV DATA: Not applicable SIGNED BY: RT Mu(R) April 24, 2022 2:35 PM documented in this encounter [facility] 04-24-2022 History of Present illness Narrative Mayur Ellis MD Department of Orthopaedics Orthopaedics [address] [place] [address] Dept: [phone] Dept April 24, 2022 CHIEF COMPLAINT: Established Patient of the Left Knee and 3 weeks post injury left knee 10 months post visit s/p ACL reconstruction right knee, referred to Dr. Muniz for 2nd opinion HPI AMB ROOMING INTAKE FLOWSHEET DATA Risk Screening Do you have concerns about personal safety or safety in the home?: No Pain Pain Level: 5 Pain Location: Knee-Left Description: Sharp Duration Amount of Time: 3 Duration Units: Weeks Frequency: Continuous Intervention/Comfort measure: Medication Comments: tylenol Pt. presents with new injury of left knee which occurred 3 weeks ago when he planted left leg and pivoted and heard pop with sharp pain. he states it feels unstable. He denies ecchymosis at time of injury. He has had past ACL repair of this knee. He has been taking tylenol 100 mg 2-3 times per week when pain is bad with complete relief. ASSESSMENT: M25.562 Acute pain of left knee (primary encounter diagnosis) S83.242A Tear of medial meniscus of left knee, current, unspecified tear type, initial encounter PLAN: He is slightly lax but symmetrical to the contralateral side and still with a solid endpoint. I like to get an MRI based on his feelings of instability and a pop that he felt. Mr. Nicola Stovall was advised as to contrast therapies and/or to take analgesics/anti-inflammatories as needed and all contraindications were reviewed. OBJECTIVE: Mr. Nicola Stovall is a pleasant 36 year old in no apparent distress. Gen:There were no vitals taken for this visit. nl development, non obese, no deformities ENT: Normocephalic, normal hearing, moist mucosa CV: Pulses:DP/PT= 2+ and symmetric, capillary refill < 2 secs, no peripheral edema/varicosities Skin: no rash, bruising or lesions. Good turgor. Psych: cooperative and appropriate, alert and oriented x 3, good mood and affect. Musculoskeletal: 2+ Santiago, symmetrical to the contralateral side with a stable endpoint. Mild pain but no mechanical symptoms with Melo. Imaging: IMPRESSION: No radiographic evidence of acute osseous abnormality. Status post anterior cruciate ligament repair with stable mild medial compartmental joint space narrowing. Floorwalker: [facility] Transcribe Date/Time: Apr 24 2022 3:26P Dictated by : MEHDI FERGUSON MD This examination was interpreted and the report reviewed and electronically signed by: MEHDI FERGUSON MD on Apr 24 2022 3:27PM EST Results-Findings * * *Final Report* * * DATE OF EXAM: Apr 24 2022 2:42PM WRX 5206 - XR KNEE 2V AP/LAT LT / PROCEDURE REASON: Acute pain of left knee * * * * Physician Interpretation * * * * CLINICAL INDICATION: Pain TECHNIQUE: AP and lateral radiographs of the left knee COMPARISON: Radiograph dated April 28, 2021 FINDINGS: Left knee: Trace fluid in the left suprapatellar joint space. Stable postsurgical changes from anterior cruciate ligament repair. No acute fracture or dislocation. Stable mild medial compartmental joint space narrowing. Comparison radiograph of the right knee demonstrates stable postsurgical changes from anterior cruciate ligament repair and stable mild medial compartmental joint space narrowing. Supporting Subjective Information Below: Past Surgical History: PAST SURGICAL HISTORY Procedure Laterality Date KNEE SCOPE,AID ANT CRUCIATE REPAIR Left 10/23/2018 Left knee arthroscopic ACL reconstruction with auto hamstring graft and left knee medial menisectomy KNEE SCOPE,AID ANT CRUCIATE REPAIR Right 07/09/2019 Righ knee arthroscopic ACL reconstruction with auto hamstring graft and right knee medial menisectomy, & medial distal femoral condyle microfracture NONE Medications: Current Outpatient Medications Medication Sig meloxicam (MOBIC) 15 mg tablet Take 1 tablet by mouth once daily. (Patient not taking: Reported on 07/28/2021 ) Acetaminophen 500 mg cap Take 1,000 mg by mouth as needed. (Patient not taking: Reported on 08/23/2021 ) No current facility-administered medications for this visit. Allergies: Patient has no known allergies. ROS: General (negative for fatigue, malaise, weight loss/gain) HEENT (negative for headache, earache, recent vision changes, sinus pain, sore throat) Respiratory (no recent shortness of breath, hemoptysis) CV (negative for chest tightness, palpitations) Musculoskeletal (see HPI) Psych (no depression, anxiety) Mayur Ellis MD documented in this encounter [facility] 11-22-2021 Note HNO ID: [id number] Author: Cliff Elizalde PT Service: ? Author Type: Physical Therapist Type: Progress Notes Filed: 11/22/2021 3:32 PM Note Text: 11/22/2021 [facility]IL[facility] SPORTS THER[facility] PHYSICAL THERAPY DISCONTINUANCE OF CARE Plan of Care Period: Start of Care Date: 08/04/21 Last Visit Date: 08/04/2021 Therapy Program: Patient did not return for follow up care as planned. Please refer to last visit note for interventions provided for this episode of care. Assessment: Unable to formally assess goal achievement. Reason for Discontinuation of Care: Patient has not returned to therapy or scheduled additional follow-up appointments. Cliff Elizalde PT [facility] 08-24-2021 Note HNO ID: [id number] Author: RT Santiago(R) Service: ? Author Type: Supervisor Mails Type: Progress Notes Filed: 08/24/2021 1:02 PM Note Text: Radiology Service Progress Note DATE OF SERVICE: August 24, 2021 TIME: 1:02 PM PATIENT IDENTITY VERIFICATION COMPLETED USING TWO (2) STANDARD IDENTIFIERS: Name and Date of confirmed by patient verbally. FALL SCREENING: Has the patient had 2 falls in the last year or 1 fall with injury or currently using an Ambulatory Assistive Device (Walker, Cane, Wheelchair, Crutches, etc.)? No PATIENT GENDER DATA: Male PATIENT RELEVANT IMPLANT DATA REVIEWED: Yes ALLERGIES: Reviewed and unchanged CONTRAST ALLERGY: NO. EXAM: CT -CONTRAST INDUCED NEPHROPATHY RISK FACTORS: Not applicable CREATININE: Creatinine Date Value Ref Range Status 07/07/2019 0.92 0.73 - 1.22 mg/dL Final eGFR-All Other Races Date Value Ref Range Status 07/07/2019 >60 . Final Comment: eGFR (Estimated GFR) Units of measure: mL/min/1.73 meters squared eGFR is derived from the reexpressed MDRD Study equation using the following parameters: serum creatinine, age, gender and race. The creatinine assay has been calibrated to be traceable to IDMS. An eGFR <60 mL/min/1.73m2 for >3 months is consistent with chronic kidney disease. Refer to KDOQI guidelines for clinical interpretation. In patients with unstable renal function, e.g. those with acute kidney injury, the eGFR may not accurately reflect actual GFR. eGFR- Date Value Ref Range Status 07/07/2019 >60 Final P.O.C.T. RESULTS: N/A August 24, 2021 TREATMENT: N/A PERIPHERAL IV DATA: Ambulatory: A peripheral IV was started in the Right antecubital site with a Angio cath: 18 gauge. RADIOLOGY DEPARTMENT: CT; Exam(s) Completed: Abdomen/Pelvis SIGNATURE: RT Columba(R) PATIENT NAME: Nicola Stovall DATE: August 24, 2021 TIME: 1:02 PM [facility] 08-23-2021 Note HNO ID: [id number] Author: Dilshad Morales MD Service: ? Author Type: Physician Type: Progress Notes Filed: 08/23/2021 2:47 PM Note Text: Patient status post a CT scan of the abdomen and pelvis with IV and p.o. contrast. This revealed a jejunal intussusception. His pain really is unchanged on the left side of the umbilical area it does not appear to be related to his stomach or his colon. He is not complaining of any nausea or vomiting. Objective:Blood pressure 108/60, pulse 72, temperature 36.4 ?C (97.6 ?F), SpO2 99 %. Abdomen is soft tenderness in the left periumbilical area and left side of the abdomen. No abdominal wall hernias are seen. No signs of any rashes are seen. Assessment:Intussusception of jejunum (hcc) (primary encounter diagnosis) Plan: I am getting a CT enteroclysis study on him to make sure that we do not have anything that looks like a lead point in the small intestine. If this is negative I probably send him to gastroenterology for possible scopes. Otherwise his pain is more likely to be musculoskeletal in nature. [facility] 08-10-2021 Note HNO ID: [id number] Author: Kortney Murphy, [place] Service: ? Author Type: Clinical Supervisor Mails Type: Progress Notes Filed: 08/10/2021 2:51 PM Note Text: Radiology Service Progress Note DATE OF SERVICE: August 10, 2021 TIME: 2:51 PM PATIENT IDENTITY VERIFICATION COMPLETED USING TWO (2) STANDARD IDENTIFIERS: Name and Date of confirmed by patient verbally. FALL SCREENING: Has the patient had 2 falls in the last year or 1 fall with injury or currently using an Ambulatory Assistive Device (Walker, Cane, Wheelchair, Crutches, etc.)? No PATIENT GENDER DATA: Male PATIENT RELEVANT IMPLANT DATA REVIEWED: Yes ALLERGIES: Reviewed and unchanged CONTRAST ALLERGY: NO. EXAM: CT -CONTRAST INDUCED NEPHROPATHY RISK FACTORS: Not applicable CREATININE: Creatinine Date Value Ref Range Status 07/07/2019 0.92 0.73 - 1.22 mg/dL Final eGFR-All Other Races Date Value Ref Range Status 07/07/2019 >60 . Final Comment: eGFR (Estimated GFR) Units of measure: mL/min/1.73 meters squared eGFR is derived from the reexpressed MDRD Study equation using the following parameters: serum creatinine, age, gender and race. The creatinine assay has been calibrated to be traceable to IDMS. An eGFR <60 mL/min/1.73m2 for >3 months is consistent with chronic kidney disease. Refer to KDOQI guidelines for clinical interpretation. In patients with unstable renal function, e.g. those with acute kidney injury, the eGFR may not accurately reflect actual GFR. eGFR- Date Value Ref Range Status 07/07/2019 >60 Final P.O.C.T. RESULTS: N/A August 10, 2021 TREATMENT: N/A PERIPHERAL IV DATA: Ambulatory: A peripheral IV was started in the Right antecubital site with a Angio cath: 22 gauge. RADIOLOGY DEPARTMENT: CT; Exam(s) Completed: Abdomen/Pelvis SIGNATURE: Kortney Murphy, DARSHAN PATIENT NAME: Nicola Stovall DATE: August 10, 2021 TIME: 2:51 PM [facility] 08-05-2021 Note HNO ID: [id number] Author: Cliff Elizalde PT Service: ? Author Type: Physical Therapist Type: Progress Notes Filed: 08/05/2021 12:35 PM Note Text: Episode Visit Count: 1 Therapist That Will Oversee The Plan Of Care: Cliff Elizalde Start of Care Date: 08/04/21 Onset Date: 08/05/19 Patient Identified by Name and Date of : Yes REHABILITATION AND SPORTS THERAPY PHYSICAL THERAPY EVALUATION PLAN OF CARE: Assessment: Nicola Stovall presents with the chief complaint of right knee pain. He presents with impairments of limited knee and hip strength of the RLE, poor tolerance for standing, walking, squatting, and work tasks. He may benefit from skilled therapy services to improve the above noted deficits to decrease pain and improve activity tolerance. Prognosis: Good Good due to: current objective clinical presentation;good overall health status;positive past response to therapy;good support system/ coping skills Goals for Episode of Care: created on 08/04/21 through 10/05/21 Phase 5 to Return to Sport Criteria: Criterion for Progression: Strength: Greater than or equal to 90% symmetry., Pain free transition to activities and no functional complaints. and Confidence when running, cutting, jumping at full speed. Planned Interventions, Frequency, and Duration: Current Frequency: 1x/month Duration: 8 weeks Total Number of Visits Planned: 2 Planned Treatment Interventions: Therapeutic exercise (63293);Neuromuscular re-education (27717);Manual therapy (00102);Therapeutic activities (14171);Self-correction management (35576);Patient/Family/Caregiver Education;Body Mechanics Training PLAN FOR NEXT VISIT: Continue strengthening, May try leg press and HS curl machine Patient demonstrates good understanding of plan of care and treatment. The above goals and plan of care were discussed and agreed upon by patient/family. SUBJECTIVE: Nicola Stovall is a 36 year old male seen today for R knee pain that has gotten worse since his ACL repair when returning to work. Notes pain around the bottom of the knee cap and can be sharp to achy. Pt would like exercises to perform at home as his schedule makes it tough to come into therapy regularly Pain: Pain Pain Level: 6 Pain Location: Knee - Right Description: Aching;Sharp Frequency: Intermittent;With movement Post Treatment Pain Post Treatment Pain Level: 0 PROMIS Scales T-scores: mean of general population = 50. 5 points is clinically meaningfully difference Percentiles provide an indication of how the patient's score ranks in relation to the general population. Higher percentile rankings indicate better function/quality of life. 50th percentile is the average of the general population and indicates half of respondents had a worse score. T-scores: mean of general population = 50. 5 points is clinically meaningfully difference Percentiles provide an indication of how the patient's score ranks in relation to the general population. Higher percentile rankings indicate better function/quality of life. 50th percentile is the average of the general population and indicates half of respondents had a worse score. OBJECTIVE MEASURES WITH LEVEL OF FUNCTION: LE AROM R Knee Extension: 5 Degrees R Knee Flexion: 140 Degrees Dynamometer Strength Right Quadriceps Strength (lbs): 50.1 Left Quadriceps Strength (lbs): 66.7 Quad Strength Limb Symmetry Index (%): 75.11 Right Hamstring Strength (lbs): 37.7 Left Hamstring Strength (lbs): 47.7 Hamstring Strength Limb Symmetry Index(%): 79.04 Education: TREATMENT: PT Treatment Interventions: Therapeutic Exercise Evaluation Therapeutic Exercise: 1: *SL glute bridging 3x10 2: *Squats 3x10 3: *Step back lunges 3x10 4: *Step ups onto 12 step 3x10 5: *SL hip abduction 3x10 6: *SLR 3x20 7: Discussed rationale for exercises and contacting me for progressions as needed since he will be working on his own with these exercises. Skilled Intervention: Patient was educated in proper exercise technique and purpose for exercises. Skilled judgment was provided in selection of appropriate interventions. Provided written instruction for home exercise program to facilitate proper performance and compliance. Correct performance of therapeutic exercises was facilitated with verbal, visual and tactile cuing. Patient education as noted. Billing * Evaluation Low Complexity: 1 Unit Therapeutic Exercise Treatment Minutes: 24 Total Treatment Time Minutes (timed and untimed codes) : 40 Cliff Elizalde, PT [facility] 08-04-2021 Note HNO ID: [id number] Author: Dilshad Morales MD Service: ? Author Type: Physician Type: Progress Notes Filed: 08/04/2021 7:56 AM Note Text: HISTORY AND PHYSICAL Nicola Stovall 1985 REFERRING PHYSICIAN: Self CHIEF COMPLAINT: Consult ([facility] ER follow up, hernia) HPI: The patient is a 36 year old male with a complaint of nausea as well as pain on the left lower extremity side of his periumbilical region. He cannot recall having any bulges come out here. Was seen in the emergency department on 927 where they obtained a CAT scan of his abdomen and pelvis without contrast. This did not reveal anything that was suspicious. . PAST MEDICAL HISTORY Diagnosis Date - Low back pain PAST SURGICAL HISTORY Procedure Laterality Date - KNEE SCOPE,AID ANT CRUCIATE REPAIR Left 10/23/2018 Left knee arthroscopic ACL reconstruction with auto hamstring graft and left knee medial menisectomy - KNEE SCOPE,AID ANT CRUCIATE REPAIR Right 07/09/2019 [facility] knee arthroscopic ACL reconstruction with auto hamstring graft and right knee medial menisectomy, AND medial distal femoral condyle microfracture - NONE Current Outpatient Medications Medication Sig - Acetaminophen 500 mg cap Take 1,000 mg by mouth as needed. - meloxicam (MOBIC) 15 mg tablet Take 1 tablet by mouth once daily. (Patient not taking: Reported on 07/28/2021 ) No current facility-administered medications for this visit. ALLERGIES: Patient has no known allergies. PERSONAL HISTORY: Social History Tobacco Use - Smoking status: Never Smoker - Smokeless tobacco: Never Used Vaping Use - Vaping Use: Never used Substance Use Topics - Alcohol use: Yes Comment: 1 beer twice per month - Drug use: No FAMILY HISTORY: FAMILY HISTORY Problem Relation Age of Onset - No Known Problems Mother - No Known Problems Father REVIEW OF SYMPTOMS: The review of systems data was entered by the nurse and reviewed by wa Nursing Notes: Sasha Gandhi RN 07/28/2021 3:55 PM Signed Portuguese interpretor Shwetha #[id number]. REVIEW OF SYSTEMS: General: The patient denies fatigue, denies weight loss, denies weight gain, denies feeling hot, and denies feelings of cold. Eyes: The patient denies glaucoma, denies eye injury/surgery, does not wear glasses or contacts. Ear/Nose/Throat: The patient denies allergies, denies hayfever, denies ear infections, and denies bloody noses. Cardiovascular: The patient denies chest pain, denies heart disease, denies high blood pressure,denies cardiac stent, denies prior heart attack, denies irregular heart beat, denies high cholesterol, denies poor circulation, denies heart failure, other cardiac issues, denies claudication, denies cold feet, denies peripheral arterial stent. Respiratory: The patient denies tuberculosis, denies pneumonia, denies frequent cough, denies pulmonary embolism, denies shortness of breath, and denies coughing up blood. Gastrointestinal: The patient denies difficulty swallowing, NOTES acid reflux, denies ulcers, NOTES vomiting, denies jaundice/hepatitis, denies gallbladder problems, denies black or tarry stools, denies hemorrhoids, denies bleeding from rectum, denies diverticulitis, denies constipation, denies diarrhea, denies loss of stool control, and NOTES hernias. Kidney/Bladder: The patient denies kidney stones, denies urine infections, and denies bloody urine. Skin: The patient denies a history of skin cancer, denies bleeding/changing moles, and denies a history of skin rash. Neurologic: The patient denies a history of epilepsy/convulsions, denies headaches, denies head/spinal injuries, and denies stroke/TIA. Psychiatric: The patient denies psychiatric medications, denies depression, and denies voices, denies substance abuse. Endocrine: The patient denies thyroid disorders, denies diabetes, and denies hormonal problems. Hematologic: The patient denies a history of bruising, denies bleeding, and denies anemia, denies blood clots. Infections: The patient denies a history of measles and mumps, denies rheumatic fever, and denies sexually transmitted diseases. Musculoskeletal: The patient denies back pain/injury, denies back problems, denies sciatica, denies knee/foot trouble, denies arthritis, or denies gout. When was patient's last Mammogram screening? N/A Last Colonoscopy: None Sasha Gandhi RN PHYSICAL EXAMINATION: General: The patient is 36 year old male, well nourished, well hydrated in no acute distress. The patient is oriented to time, place, and person. VITALS: Blood pressure 104/60, pulse 84, temperature 36.7 ?C (98 ?F), height 162.6 cm (5' 4 ), weight 74.1 kg (163 lb 6.4 oz), SpO2 99 %. HEENT: Normal cephalic, ataumatic, pupils are equally round, sclera are anicteric, mucous membranes are moist, oropharynx is clear. Neck has no masses, asymmetry or lymphadenopathy. Thyroid is unremarkable. Respiratory: Clear to auscultation and percu (more content not included)... [facility] 07-27-2021 Note HNO ID: [id number] Author: Dora Muniz, DO Service: ? Author Type: Physician Type: Progress Notes Filed: 07/27/2021 2:40 PM Note Text: Follow Up Visit Chief Complaint Nicola Stovall is a 36 year old male who presents today for follow up office visit. Patient presents with: Right Knee - New, Knee Pain History of Present Illness PAIN EVALUATION 07/27/2021 1357 Pain Level: 3 Pain Location: Knee-Right Description: Aching;Dull Duration Amount of Time: 2 Duration Units: Years Frequency: Intermittent Intervention/Comfort measure: Medication;Reposition;Relaxation;O ther: See comment;Cold meloxicam, PT HPI: Nicola Stovall is a 36 year old male for a follow up visit Right knee pian . Pain history is noted as above. Denies numbness, tingling, fever, chills or other constitutional symptoms. If has to walk below low ceiling, hard to walk. doesn hurt to go upstairs but hurts to go up slight hill. Physical therapy- home exercises. 2-3 pain Hyperextension and with flexion while walking, if bends all the way down it doesn't hurt, only if bends a little bit. Is there any overall improvement in your condition? Yes, Any new injury, since being seen last: No REVIEW OF SYMPTOMS: Patient did not have, and does not currently have, any weight loss, malaise, fever, chills, headache, chest pain, chest pressure, palpitations, cough, shortness of breath, orthopnea, paroxsymal nocturnal dyspnea, nausea, vomiting, diarrhea, constipation, melena, hematochezia, urinary difficulties, prolonged bleeding, easily bruising, heat or cold intolerance, new onset joint pain or swelling, new onset extremity weakness or numbness, new onset auditory or visual disturbances, lightheadedness, dizziness, partial loss of consciousness or full loss of consciousness. Current Outpatient Medications Medication Sig - meloxicam (MOBIC) 15 mg tablet Take 1 tablet by mouth once daily. - Acetaminophen 500 mg cap Take 1,000 mg by mouth as needed. No current facility-administered medications for this visit. Physical Exam Vitals: There were no vitals taken for this visit. Psych: Pleasant, good affect and mood General Appearance: Well appearing, alert, in no acute distress, well-hydrated, well nourished.. Skin: Skin color, texture, turgor normal, no suspicious rashes or lesions. Peripheral Pulses: Normal. Neurologic: Gait normal. Reflexes normal and symmetric. Sensation grossly intact.. Lymph Nodes: No cervical lymphadenopathy, No supraclavicular lymphadenopathy, No axillary lymphadenopathy. and No inguinal lymphadenopathy.. Respiratory: No recent pulmonary infection, hemoptysis, chronic cough, or shortness of breath at rest Rheumatologic: Joint deformities: Right ant knee pain Ortho Exam Assessment and Plan Radiographs: I have independently reviewed films and my findings are the same. and I have reviewed the images with the patient and family. Last MRI Knee - Impression Only MRI KNEE WO IVCON RT Exam End: 06/17/2021 3:04 PM (Final result) Impression: IMPRESSION: 1. INTACT RIGHT ACL GRAFT 2. NONSPECIFIC EDEMA SURROUNDING THE TIBIAL TUNNEL AND PROTRUSION OF TUNNEL SIGNAL CHARACTERISTICS BEYOND THE ANTERIOR CORTEX. A DISCRETE GANGLION IS NOT IDENTIFIED. FINDINGS MAY BE RELATED TO THE NONMETALLIC INTERFERENCE SCREW. 3. POSTOPERATIVE CHANGES OF THE MEDIAL MENISCUS WITHOUT RECURRENT TEAR. ... Complete Results Impression: Encounter Diagnosis ICD-10-CM 1. 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 All questions answered. Today, in detail, through a thorough evaluation, we discussed possible etiologies of pain and our plans for further diagnostic and therapeutic interventions. We discussed strategies for decreasing pain and improving strength, stability and motion. Patient's questions were answered in detailed. Patient verbalizes understanding and agrees with the treatment plan as discussed. Dora Muniz, [facility] 07-14-2021 Note HNO ID: [id number] Author: Daya Hirsch Service: ? Author Type: ? Type: Progress Notes Filed: 07/14/2021 9:46 AM Note Text: Unable to reach patient because his mail box is not set up. I called his girlfriend, Jasmina, and scheduled appointment with Dr. Muniz, for a second opinion. Scheduled advertising account representative for Portuguese. [facility] 06-23-2021 Note HNO ID: [id number] Author: Mayur Ellis MD Service: ? Author Type: Physician Type: Progress Notes Filed: 07/14/2021 8:54 AM Note Text: Mayur Ellis MD Department of Orthopaedics Orthopaedics [facility] [address] [facility] [address] Dept: [phone] Dept June 23, 2021 CHIEF COMPLAINT: Follow Up of the Right Knee and Results - Mri HPI Patient here for MRI results. States he is continuing to have pain in his knee. There are some days he has pain and other days he has no pain. States his pain is worse when walking up a hill. He is having difficult time due to the pain. Taking Meloxicam for the pain and is not really helping. AMB ROOMING INTAKE FLOWSHEET DATA Risk Screening Do you have concerns about personal safety or safety in the home?: No Pain Pain Level: 5 Pain Location: Knee-Right Description: Sharp Duration Amount of Time: (Ongoing) Frequency: Continuous Intervention/Comfort measure: Medication ASSESSMENT: Z98.890 S/P ACL reconstruction (primary encounter diagnosis) PLAN: MRI looks quite well. Possibly slightly prominent interference screw. The previous area OCD lesion is present. Not entirely sure the specifics of his symptomatic knee. Probably have him see Dr. Muniz just as a second opinion but at this time I am not sure anything of surgical necessity is there. Mr. Nicola Stovall was advised as to contrast therapies and/or to take analgesics/anti-inflammatories as needed and all contraindications were reviewed. OBJECTIVE: Mr. Nicola Stovall is a pleasant 36 year old in no apparent distress. Gen:There were no vitals taken for this visit. Imaging: IMPRESSION: 1. ?INTACT RIGHT ACL GRAFT 2. ?NONSPECIFIC EDEMA SURROUNDING THE TIBIAL TUNNEL AND PROTRUSION OF TUNNEL SIGNAL CHARACTERISTICS BEYOND THE ANTERIOR CORTEX. ?A DISCRETE GANGLION IS NOT IDENTIFIED. ?FINDINGS MAY BE RELATED TO THE NONMETALLIC INTERFERENCE SCREW. 3. ?POSTOPERATIVE CHANGES OF THE MEDIAL MENISCUS WITHOUT RECURRENT TEAR. Floorwalker: LISA ? Transcribe Date/Time: Jun 17 2021 ?4:06P Dictated by : MAURY BOSS MD This examination was interpreted and the report reviewed and electronically signed by: MAURY BOSS MD on Jun 17 2021 ?4:20PM ?EST Results-Findings * * *Final Report* * * DATE OF EXAM: Jun 17 2021 ?3:04PM ? WRM ? 0213 ?- ?MRI KNEE WO IVCON RT ?/ PROCEDURE REASON: multiple diagnoses ?? ? * * * * Physician Interpretation * * * * ?EXAMINATION: ?MRI RIGHT KNEE WITHOUT CONTRAST CLINICAL HISTORY: ?Internal derangement Arthritis, knee ?RIGHT proximal femur was performed with images obtained before and after the intravenous administration of Dotarem. ?Comparison is to May 06 PET/CT. ?Preserved electronic medical record, he underwent RIGHT ACL reconstruction, medial meniscectomy, and medial distal femoral condyle microfracture 07/09/2019. TECHNIQUE: Routine non-contrast MRI of the knee MQ: ?[id number] COMPARISON: ?X-rays April 28. ?MRI 06/09/2019. RESULT: There are postoperative susceptibility artifacts about the knee particularly in Hoffa's fat pad, the anterior tibia, and the posterolateral supracondylar femur the proximal tibia . LIGAMENTS: ACL: ?Intact ACL graft PCL: ?Intact MCL: ?Intact LCL Complex: ?Intact JOINT FLUID AND SYNOVIUM: ?No joint effusion. ?No synovitis. TENDONS: ?The distal quadriceps and patellar tendons are intact. ?The popliteus tendon is intact. MENISCI: Medial Meniscus: ?Postsurgical changes without a definite tear in the posterior horn Lateral Meniscus: ?Intact. CARTILAGE: Medial Femoral Condyle: Small area(s) of full thickness cartilage loss/fissuring with adjacent susceptibility artifacts in the area of the previously seen chondral defect. Medial Tibial Plateau: Normal ; mild susceptibility artifacts. Lateral Femoral Condyle: Normal; susceptibility artifacts limit assessment posteriorly Lateral Tibial Plateau: Normal Patella: Normal Trochlea: Normal; limited by susceptibility artifacts BONES AND MARROW: ?Nonmetallic interference screw in the tibial tunnel. ? There is mild nonspecific edema surrounding the tibial tunnel. ? Protrusion of signal characteristics of the tunnel beyond the anterior cortex measuring 0.7 x 1.2 x 1.5 cm (AP x TRV x CC) MUSCLES: ?Muscle bulk and signal intensity are normal. OTHER: ?minimal scarring in Hoffa's fat pad. Supporting Subjective Information Below: Past Surgical History: PAST SURGICAL HISTORY Procedure Laterality Date - KNEE SCOPE,AID ANT CRUCIATE REPAIR Left 10/23/2018 Left knee arthroscopic ACL reconstruction with auto hamstring graft and left knee medial menisectomy - KNEE SCOPE,AID ANT CRUCIATE REPAIR Right 07/09/2019 [facility] knee arthroscopic ACL reconstruction with auto hamstring graft and right knee medial menisectomy, AND medial distal femoral condyle microfracture - NONE Medications: Current Out (more content not included)... [facility] 06-17-2021 Note HNO ID: [id number] Author: RT Deisy(R) Service: ? Author Type: Supervisor Mails Type: Progress Notes Filed: 06/17/2021 2:36 PM Note Text: Radiology Service Progress Note PATIENT NAME: Nicola Stovall DATE OF SERVICE: June 17, 2021 TIME: 2:36 PM PATIENT IDENTITY VERIFICATION COMPLETED USING TWO (2) IDENTIFIERS: Name and Date of confirmed by patient verbally. FALL SCREENING: Has the patient had 2 falls in the last year or 1 fall with injury or currently using an Ambulatory Assistive Device (Walker, Cane, Wheelchair, Crutches, etc.)? No PATIENT GENDER DATA: Male PATIENT RELEVANT IMPLANT DATA REVIEWED: Yes RADIOLOGY DEPARTMENT: MR; Exam(s) Completed: Lower MSK: Knee, right PERIPHERAL IV DATA: Not applicable SIGNED BY: RT Deisy(R) June 17, 2021 2:36 PM [facility] Acute pain of left knee- Primary Tear of medial meniscus of left knee, current, unspecified tear type, initial encounter documented in this encounter [facility] for referral (narrative)* Diagnostic Procedure Only (Routine) - Closed Specialty Diagnoses / Procedures Referred By Tiara t Referred To Contact XR IMAGING Diagnoses Acute pain of left knee Procedures XR KNEE LIMITED 2V AP/LAT LEFT RADIOLOGIC EXAMINATION KNEE 1/2 VIEWS Mayur Ellis MD [address] [place] [address] Xr Imaging Referral ID Status Reason Start Date Expiration Date V isits Requested Visits Authorized [id number] Closed Auto-Generate d Referral 04/24/2022 05/24/2023 1 1 [facility] for visit Narrative* Diagnostic Procedure Only (Routine) - Closed Specialty Diagnoses / Procedures Referred By Contac t Referred To Contact XR IMAGING Diagnoses Acute pain of left knee Procedures XR KNEE LIMITED 2V AP/LAT LEFT RADIOLOGIC EXAMINATION KNEE 1/2 VIEWS Mayur Ellis MD [address] [place] [address] Xr Imaging Referral ID Status Reason Start Date Expiration Date V isits Requested Visits Authorized [id number] Closed Auto-Generate d Referral 04/24/2022 05/24/2023 1 1 [facility] Summary Purpose Family History No Family History Records FoundNo Family History Records FoundNo Family History Records Found Advance Directives No Advanced Directives Records FoundDocuments on File Type Date Recorded Patient Medical Reimbursement Manager Expl anation Advance Directive(s) 07/09/2019 7:44 AM Advance Directive(s) 10/23/2018 6:40 AM Advance Directive(s) 10/14/2018 12:45 PM Reason for Referral Specialty Diagnoses / Procedures Referred By Tiara clark Referred To Contact MR IMAGING Diagnoses Acute pain of left knee Tear of medial meniscus of left knee, current, unspecified tear type, initial encounter Procedures MRI KNEE WO IVCON LT MRI ANY JT LOWER EXTREM W/O CONTRAST MATRL Mayur Ellis MD [address] [place] [address] Mr Imaging Referral ID Status Reason Start Date Expiration Date V isits Requested Visits Authorized [id number] Closed Auto-Generate d Referral 04/25/2022 06/24/2022 1 1 Specialty Diagnoses / Procedures Referred By Tiara t Referred To Contact XR IMAGING Diagnoses Acute pain of left knee Procedures XR KNEE LIMITED 2V AP/LAT LEFT RADIOLOGIC EXAMINATION KNEE 1/2 VIEWS Mayur Ellis MD [address] [place] [address] Xr Imaging Referral ID Status Reason Start Date Expiration Date V isits Requested Visits Authorized [id number] Closed Auto-Generate d Referral 04/24/2022 05/24/2023 1 1 Additional Source Comments (unrecognized sect ion and content) No Status Records FoundNo Status Records FoundNo Status Records Found INFORMATION SOURCE (unrecogn ized section and content) DATE CREATED AUTHOR AUTHOR'S ORGANIZ ATION 08/03/2019 [facility] DATE CREATED AUTHOR AUTHOR'S ORGANIZ ATION 05/18/2022 [facility] Source Comments (unrecognize d section and content) In the event this informatio n is protected by the Federal Confidentiality of Alcohol and Drug Abuse Patient Records regulations: The Federal rules restrict any use of the information to criminally investigate or prosecute any alcohol or drug abuse patient.[facility] the event this information is protected by the Federal Confidentiality of Alcohol and Drug Abuse Patient Records regulations: The Federal rules restrict any use of the information to criminally investigate or prosecute any alcohol or drug abuse patient.[facility] the event this information is protected by the Federal Confidentiality of Alcohol and Drug Abuse Patient Records regulations: The Federal rules restrict any use of the information to criminally investigate or prosecute any alcohol or drug abuse patient.[facility] Reason for Visit (unrecogniz ed section and content) Referral ID Status Reason Start Date Expiration Date V isits Requested Visits Authorized [id number] Closed Auto-Generate d Referral 04/25/2022 06/24/2022 1 1 Reason Comments 3 weeks post injury left knee Established Patient FOR RECORDS PERTAINING TO PATIENTS WHO ARE OR HAVE BEEN ENROLLED IN A CHEMICAL DEPENDENCY/SUBSTANCEABUSE PROGRAM, SOME INFORMATION MAY BE OMITTED. This clinical summary was aggregated from multiple sources. Caution should be exercised in using it in the provision of clinical care. This summary normalizes information from multiple sources, and as a consequence, information in this document may materially change the coding, format and clinical context of patient data. In addition, data may be omitted in some cases. CLINICAL DECISIONS SHOULD BE BASED ON THE PRIMARY CLINICAL RECORDS. [facility] [employer] [facility]. provides no warranty or guarantee of the accuracy or completeness of information in this document.
[2023-12-02 20:56] LABS: Lactic Acid 1.5 mmol/L (0.4-1.9)
[2023-12-02 22:24] VITALS: BP 102/54; PULSE 72; RESP 14; O2SAT 99
== END 2023-12-02 22:25 | disposition home or self-care (01) ==
PROVIDERS: Physician Assistant; Emergency Provider Emergency Medicine; Visit Provider Emergency Medicine
DX: M54.50 Low back pain, unspecified (principal); B34.9 Viral infection, unspecified; Z11.52 Encounter for screening for COVID-19; R11.2 Nausea with vomiting, unspecified; G89.29 Other chronic pain
CPT/HCPCS: 74176; 80048; 81001; 83605; 85025; 87631; 96361; 96374; 96375; 99282; J7030; A4216; J2405